=== PATIENT | female | born 1975 | race Caucasian/White ===

== ENCOUNTER 2018-01-28 05:26 | Day surgery (SDC) | payer BC, OTHER ==
[~2018-01-28] VITALS: Ht 157.5 cm; Wt 65.8 kg
--- NOTE | ~2018-01-28 | O ---
[address] [address] OPERATIVE REPORT Name: LUCIE MERCER Room #: DEP [facility].#: [id number] Admission: 01/28/18 Attend Phys: Jhonathan Bennett MD Discharge: 01/28/18 Date of : 79 Report #: [id number] THIS REPORT FOR: //name// CC: Shirin Bennett DATE OF SERVICE: 01/28/2018 SERVICE: Orthopedics. FACILITY: [facility]. SURGEON: Jhonathan Bennett MD OIL BAY TECHNICIAN: Yeimy Rivers NP INDICATION FOR OIL BAY TECHNICIAN: Extremity positioning, suture management assistance with repair. PREOPERATIVE DIAGNOSES: 1. Right hip pain. 2. Right hip impingement. 3. Right hip labral tear. POSTOPERATIVE DIAGNOSES: 1. Right hip pain. 2. Right hip impingement. 3. Right hip labral tear. PROCEDURE: 1. Right hip arthroscopic labral repair. 2. Right hip arthroscopic subspine acetabuloplasty. 3. Right hip arthroscopic Cam osteochondroplasty. COMPLICATIONS: None. DRAINS: None. SPECIMENS: None. ANESTHESIA: General with regional. FINDINGS: 1. Acetabular labral tear with confluent chondral wave sign repaired with [place] CinchLock suture anchor with tape x 2 with a mattress suture and NanoTack anchor with tape x 1. [address] [address] OPERATIVE REPORT Name: LUCIE MERCER Room #: [place] [facility] [place]ael[place]#: [id number] Admission: 01/28/18 Attend Phys: Jhonathan Bennett MD Discharge: 01/28/18 Date of : 79 Report #: [id number] 2. 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 Maximal alpha angle of approximately 58 degrees treated with Cam osteoplasty. HISTORY AND INDICATIONS: The patient is a 43-year-old female with a history of persistent progressive right hip pain that was recalcitrant to conservative treatment. She had extensive treatment including rest, activity modifications, physical therapy modalities, medications as well, but continued to have significant lifestyle limiting pain that was consistent with femoroacetabular impingement. She had imaging, which indicated this same with an alpha angle of approximately 58 degrees, small crossover sign secondary to extraarticular subspine impingement as well as labral tear on the MRI. She had a [place] grade of 0. Pain was present for greater than 6 months. Risks, benefits, alternatives, and indication for surgery were discussed with her in detail. Risks include but not limited to pain, bleeding, infection, injury to nerves or blood vessels, persistent pain despite surgical intervention, failure of any repairs, progression of any preexisting chondral injury, stiffness, need for further surgery as well as complications related to anesthesia such as stroke, heart attack, pulmonary complications, thromboembolic disease and . Despite the risks, she wished to proceed. PROCEDURE IN DETAIL: After right lower extremity was correctly identified in the preoperative holding as operative extremity, the patient underwent placement of a single shot regional nerve block. She was then taken to the operating room. General anesthesia was induced without complication. She was padded appropriately. Prophylactic antibiotics were administered at appropriate time. Bilateral lower extremities were placed in traction boots. The femoral head and neck junction was evaluated under dynamic fluoroscopy, evaluating the extent of the Cam deformity, which was small to medium in size and at a maximum alpha angle in the 58-60 degree range. Right leg was then prepped and draped in standard sterile fashion. Time-out procedure was performed. Traction was applied to right lower extremity. Standard anterolateral as well as anterior medial working portal was established in typical fashion. Diagnostic arthroscopy was performed. Transverse capsulotomy was performed as well. There was intense erythema within the capsule and some synovitis that was noted as well and as well as friable bleeding of synovium, which was controlled with electrocautery. There was a chondral wave sign. The labrum itself was good quality tissue and there was only a partial thickness tear at the chondral labral junction. The majority of her pathology on the soft tissue side of things was the chondral labral softening and detachment, consistent with chondral wave sign. The capsule was reflected off the dorsal side of the labrum. The subspine region of the acetabulum was exposed and the bur was used to perform a subspine extraarticular acetabuloplasty, recessing the anterior column, proximal to the acetabular rim. The bur was then used to gently abrade the acetabular rim to prepare for [address] [address] OPERATIVE REPORT Name: SYLVIELUCIE Spangler Room #: [place] [facility] [place] Sanket#: [id number] Admission: 01/28/18 Attend Phys: Jhonathan Bennett MD Discharge: 01/28/18 Date of : 79 Report #: [id number] acetabular labral refixation and then the first anchor was placed with a mattress suture providing good compression of the labrum against the acetabular rim. A second anchor was placed more peripherally and again a scope was placed in the anterior portal and the working portal was made laterally and a third anchor was placed with NanoTack anchor, providing good compression and stability of the labrum and stabilizing the wave sign. Traction was then let down. Hip was flexed. Attention was turned towards the peripheral compartment where a Cam osteoplasty was performed in a typical fashion and instruments were then removed from the hip. C-arm was brought in to assess the extent of the resection, which appeared to be satisfactory. The instruments were therefore placed back into the hip. The bony debris was lavaged out of the hip and the capsule was closed with a total of three #2 Vicryl sutures in a typical fashion. There were no complications. All counts were recorded as correct. <ELECTRONICALLY SIGNED> By: Jhonathan Bennett MD 02/03/18 1001 [id number] Jhonathan Bennett MD /nt
[~2018-01-28 05:26] MED LIST: MULTI VITAMIN1 EACH PO; PROZAC10 MG PO
[2018-01-28 06:39] LABS: HEMATOCRIT 37.4 % (37.0-47.0); MCH 32.1 pg (26.0-34.0); MCHC 34.9 g/dL (28.0-37.0); MCV 91.9 fL (80.0-100.0); RBC 4.07 mil/uL (4.20-5.00); RDW 12.7 % (10.5-14.5); WBC 5.7 thou/uL (4.0-11.0)
[2018-01-28 07:27] VITALS: BP 133/94
[2018-01-28 10:02] VITALS: BP 133/94
== END 2018-01-28 11:10 | disposition home or self-care (01) ==
LOC: TBA 05:26 → OR 05:26
PROVIDERS: Orthopaedic Surgery Sports Medicine
DX: S73.101A Unspecified sprain of right hip, initial encounter (principal); M25.851 Other specified joint disorders, right hip; D64.9 Anemia, unspecified; F32.9 Major depressive disorder, single episode, unspecified; Z98.890 Other specified postprocedural states; Z79.899 Other long term (current) drug therapy; Z88.2 Allergy status to sulfonamides; Z88.8 Allergy status to other drugs, medicaments and biological substances; X58.XXXA Exposure to other specified factors, initial encounter; Y93.89 Activity, other specified; Y92.89 Other specified places as the place of occurrence of the external cause; Y99.8 Other external cause status
CPT/HCPCS: 50010; 50101; 50386; 51538; 52304; 55430; 56524; 56527; 57092; 57103; 62110; 62900; 70005